=== PATIENT | male | born 2000 | race Hispanic/Latino ===

== ENCOUNTER 2021-04-20 02:36 | Emergency (ER) | payer BC, OTHER | END 2021-04-20 05:22 | disposition home or self-care (01) | LOC: ERS 02:36 | DX: S02.2XXA Fracture of nasal bones, initial encounter for closed fracture (principal); S02.5XXA Fracture of tooth (traumatic), initial encounter for closed fracture; V87.8XXA Person injured in other specified noncollision transport accidents involving motor vehicle (traffic), initial encounter; Z72.0 Tobacco use | CPT/HCPCS: 70450; 70486; 72125 ==